=== PATIENT | male | born 1965 | race African-American/Black ===

== ENCOUNTER 2018-01-10 12:16 | Emergency (ER) | payer SELFPAY ==
[~2018-01-10] VITALS: Ht 188 cm; Wt 75.7 kg
[2018-01-10 13:30] VITALS: BP 124/75
[2018-01-10] MEDS ORDERED: KETOROLAC TROMETH 60MG/2ML VIAL IM ONE (14:15)
== END 2018-01-10 14:41 | disposition home or self-care (01) ==
LOC: ER 12:20
DX: M10.031 Idiopathic gout, right wrist (principal)
CPT/HCPCS: 96372; 99283; J1885